=== PATIENT | female | born 1960 | race African-American/Black ===

== ENCOUNTER 2018-09-24 21:10 | Emergency (ER) | payer BC ==
[~2018-09-24] VITALS: Ht 167.6 cm; Wt 96.5 kg
[2018-09-25] MEDS ORDERED: KETOROLAC 60MG/2ML VIAL IM STA (00:16)
[2018-09-25 00:44] VITALS: BP 135/75
== END 2018-09-25 00:45 | disposition home or self-care (01) ==
LOC: ER 21:10
DX: M54.2 Cervicalgia (principal); M54.9 Dorsalgia, unspecified; E03.9 Hypothyroidism, unspecified; Z98.890 Other specified postprocedural states; Z91.018 Allergy to other foods; V49.9XXA Car occupant (driver) (passenger) injured in unspecified traffic accident, initial encounter; Y93.89 Activity, other specified; Y92.89 Other specified places as the place of occurrence of the external cause; Y99.8 Other external cause status
CPT/HCPCS: 96372; 99283; J1885